=== PATIENT | male | born 1940 | race Caucasian/White ===

== ENCOUNTER → 2016-12-24 | Outpatient (CLI) | payer OTHER ==
[~2016-12-24] MED LIST: ASPI81CH45 OR; ATO40T OR
[2016-12-24 09:12] LABS: Basophils # (auto) 0 uL; Basophils % (auto) 0.4 % (0.0-2.0); DEFINITIVE VIEW TRANSMISSION; Eosinophils # (auto) 0.1 uL; Eosinophils % (auto) 1.7 % (0.0-7.0); Hematocrit 37.9 % (41.0-53.0); Hemoglobin 11.9 g/dL (13.5-17.5); Lymphocytes # (auto) 1.4 uL; Lymphocytes % (auto) 19.4 % (10.0-50.0); Mean Corpuscular Hemoglobin 25.4 pg (28.0-32.0); Mean Corpuscular Hgb Conc. 31.3 g/dL (32.0-36.0); Mean Corpuscular Volume 81.1 fL (80.0-100.0); Mean Platelet Volume 9.1 fL (7.4-10.4); Monocytes # (auto) 0.7 uL; Monocytes % (auto) 9.2 % (0.0-12.0); Neutrophils # (auto) 5.1 uL; Neutrophils % (auto) 69.3 % (37.0-80.0); Platelet Count (auto) 396 10^3/uL (140-450); Red Cell Distribution Width 19.4 % (11.6-16.0); White Blood Cell 7.4 10^3/uL (4.4-10.8)
[2016-12-24 12:23] LABS: Anisocytosis Slight; Hypochromia Slight; Platelet Estimate Adequate
[2016-12-24 13:57] LABS: Potassium 3.7 mmol/L (3.5-5.1)
[2016-12-24 14:26] LABS: Albumin 2.7 g/dL (3.4-5.0); BUN/Creatinine Ratio 15.1; Calcium 9.7 mg/dL (8.5-10.1)
[2016-12-24 14:42] LABS: Bilirubin, Total 13.2 mg/dL (0.2-1.0); Total Protein 8.7 g/dL (6.4-8.2)
== END | disposition home or self-care (01) ==
LOC: LAB 08:03
PROVIDERS: ATTEND Internal Medicine
DX: C34.11 Malignant neoplasm of upper lobe, right bronchus or lung (principal)
CPT/HCPCS: 36415; 80053; 83615; 85025

== ENCOUNTER → 2017-01-09 | Outpatient (CLI) | payer OTHER ==
[2017-01-09 09:32] LABS: Basophils # (auto) 0 uL; Basophils % (auto) 0.4 % (0.0-2.0); DEFINITIVE VIEW TRANSMISSION; Eosinophils # (auto) 0 uL; Eosinophils % (auto) 0.7 % (0.0-7.0); Hematocrit 34.7 % (41.0-53.0); Lymphocytes # (auto) 1.7 uL; Lymphocytes % (auto) 25.3 % (10.0-50.0); Mean Corpuscular Hemoglobin 26.5 pg (28.0-32.0); Mean Corpuscular Hgb Conc. 31.7 g/dL (32.0-36.0); Mean Corpuscular Volume 83.7 fL (80.0-100.0); Monocytes # (auto) 0.7 uL; Monocytes % (auto) 10.6 % (0.0-12.0); Neutrophils # (auto) 4.3 uL; Platelet Count (auto) 363 10^3/uL (140-450); White Blood Cell 6.9 10^3/uL (4.4-10.8)
[2017-01-09 09:41] LABS: Albumin 2.4 g/dL (3.4-5.0); BUN/Creatinine Ratio 21.3; Bilirubin, Total 4.5 mg/dL (0.2-1.0); Calcium 9.1 mg/dL (8.5-10.1); Potassium 3.9 mmol/L (3.5-5.1); Total Protein 8.2 g/dL (6.4-8.2)
[2017-01-09 09:58] LABS: Red Cell Distribution Width 21.5 % (11.6-16.0)
[2017-01-09 09:59] LABS: Anisocytosis Slight; Hypochromia Slight; Platelet Estimate Adequate
== END | disposition home or self-care (01) ==
LOC: LAB 08:08
PROVIDERS: ATTEND Internal Medicine
DX: C34.11 Malignant neoplasm of upper lobe, right bronchus or lung (principal)
CPT/HCPCS: 36415; 80053; 85025

== ENCOUNTER 2017-01-10 21:31 | Inpatient (IN) | payer OTHER ==
[~2017-01-10] VITALS: Ht 182.9 cm; Wt 74.3 kg
[2017-01-10 22:11] LABS: Basophils # (auto) 0 uL; Basophils % (auto) 0.2 % (0.0-2.0); DEFINITIVE VIEW TRANSMISSION; Eosinophils # (auto) 0 uL; Eosinophils % (auto) 0.1 % (0.0-7.0); Hematocrit 36.1 % (41.0-53.0); Hemoglobin 11.5 g/dL (13.5-17.5); Lymphocytes # (auto) 2.1 uL; Lymphocytes % (auto) 14.4 % (10.0-50.0); Mean Corpuscular Hemoglobin 26.8 pg (28.0-32.0); Mean Corpuscular Hgb Conc. 31.8 g/dL (32.0-36.0); Mean Corpuscular Volume 84.3 fL (80.0-100.0); Mean Platelet Volume 8.6 fL (7.4-10.4); Neutrophils # (auto) 11.4 uL; Neutrophils % (auto) 78.3 % (37.0-80.0); Platelet Count (auto) 330 10^3/uL (140-450); White Blood Cell 14.6 10^3/uL (4.4-10.8)
[2017-01-10 22:15] LABS: Red Cell Distribution Width 21.8 % (11.6-16.0)
[2017-01-10] MEDS ORDERED: ONDANSETRON HCL 4 MG/2 ML VIAL IV ONE (22:15)
[2017-01-10] MEDS ORDERED: MORPHINE SULF INJ 2 MG/ML SYRINGE 1ML IV ONE ×2 (22:15→23:15)
[2017-01-10 22:23] LABS: Anisocytosis Slight; Hypochromia Slight; INR 1.11 (0.9-1.15); Partial Thromboplastin Time 35.2 sec (22.64-33.71); Platelet Estimate Adequate; Prothrombin Time 11.4 sec (9.37-12.3)
[2017-01-10 22:41] LABS: Albumin 2.7 g/dL (3.4-5.0); Alkaline Phosphatase 355 U/L (45-117); Amylase 83 U/L (25-115); Anion Gap 13 (5-15); Aspartate Aminotransferase 234 U/L (15-37); BUN/Creatinine Ratio 20.5; Bilirubin, Total 4.3 mg/dL (0.2-1.0); Blood Urea Nitrogen 18 mg/dL (7-18); Calcium 9.3 mg/dL (8.5-10.1); Carbon Dioxide 22 mmol/L (21-32); Chloride 100 mmol/L (98-107); GFR African American 109 mL/min; GFR Non-African American 90 mL/min; Glucose 210 mg/dL (74-106); Magnesium 2.1 mg/dL (1.6-2.6); Potassium 3.2 mmol/L (3.5-5.1); Sodium 135 mmol/L (136-145); Total Protein 8.6 g/dL (6.4-8.2)
[2017-01-10] MEDS ORDERED: SODIUM CHLORIDE 0.9% 500 ML IV ONE (23:15)
[2017-01-10] MEDS ORDERED: POTASSIUM CHL 20 Meq TABLET PO ONE (23:30)
[2017-01-10 23:58] LABS: Urine Blood Negative /uL (Negative); Urine Ca Oxalate Crystal MOD (None Seen); Urine Color Brown (Yellow); Urine Glucose TRACE mg/dL (Normal); Urine Hyaline Cast FEW /lpf (0 - 2); Urine Ketone Negative (Negative); Urine Mucus FEW (None Seen); Urine Nitrite Negative (Negative); Urine RBC 3 /hpf (0 - 3); Urine Squamous Epithelial Cell FEW /hpf (<5)
[2017-01-11] VITALS (8 sets, daily range): BP systolic 104–126; BP diastolic 49–62
[2017-01-11 00:01] LABS: Urine Bilirubin 1+ (Negative)
[2017-01-11 00:18] LABS: B-Type Natriuretic Peptide 44.26 pg/mL (0-100)
[2017-01-11 00:32] LABS: Temperature: 21.9 C (20.0-25.0)
[2017-01-11] MEDS ORDERED: HYDROmorphone HCL 2 MG/ML VL IV ONE (02:30)
[2017-01-11] MEDS ORDERED: cefTRIAXone 1GM/50ML D5W 50 ML IV ONE (02:30)
[2017-01-11] MEDS ORDERED: MORPHINE SULF INJ 2 MG/ML SYRINGE 1ML IV PRN (04:15)
[2017-01-11] MEDS ORDERED: ONDANSETRON HCL 4 MG/2 ML VIAL IV PRN (04:15)
[2017-01-11] MEDS ORDERED: ACETAMINOPHEN 325 MG TAB PO PRN (04:15)
[2017-01-11] MEDS: SODIUM CHLORIDE 0.9% 1,000 ML IV SCH ×2 (04:47→20:44)
[2017-01-11] MEDS ORDERED: ENOX80IN8 SC (07:40)
[2017-01-11] MEDS: HYDROcodone-ACET 5/325MG TAB PO PRN ×3 (08:26→17:44)
[2017-01-12] MEDS: HYDROcodone-ACET 5/325MG TAB PO PRN ×2 (03:59→09:05)
[2017-01-12 04:50] VITALS: BP 107/60
[2017-01-12 06:21] LABS: Basophils # (auto) 0 uL; Basophils % (auto) 0.2 % (0.0-2.0); DEFINITIVE VIEW TRANSMISSION; Eosinophils # (auto) 0 uL; Eosinophils % (auto) 0.4 % (0.0-7.0); Hemoglobin 10.2 g/dL (13.5-17.5); Lymphocytes # (auto) 1.3 uL; Lymphocytes % (auto) 15.1 % (10.0-50.0); Mean Corpuscular Hemoglobin 27.7 pg (28.0-32.0); Mean Corpuscular Hgb Conc. 33.9 g/dL (32.0-36.0); Mean Corpuscular Volume 81.9 fL (80.0-100.0); Monocytes # (auto) 0.8 uL; Monocytes % (auto) 9.6 % (0.0-12.0); Neutrophils # (auto) 6.5 uL; Neutrophils % (auto) 74.7 % (37.0-80.0); Platelet Count (auto) 216 10^3/uL (140-450); White Blood Cell 8.7 10^3/uL (4.4-10.8)
[2017-01-12 06:27] LABS: Red Cell Distribution Width 21.5 % (11.6-16.0)
[2017-01-12 06:46] LABS: Albumin 2.2 g/dL (3.4-5.0); BUN/Creatinine Ratio 11.3; Calcium 8.9 mg/dL (8.5-10.1); Potassium 4.1 mmol/L (3.5-5.1)
[2017-01-12 06:49] LABS: Bilirubin, Total 3.3 mg/dL (0.2-1.0); Total Protein 7.4 g/dL (6.4-8.2)
[2017-01-12 09:09] VITALS: BP 106/46
[2017-01-12 13:00] VITALS: BP 106/46
[2017-01-12 13:10] VITALS: BP 117/60
[2017-01-12 15:14] LABS: Anisocytosis Slight; Platelet Estimate Adequate
[2017-01-12 15:15] LABS: Stomatocytes Moderate
== END 2017-01-12 13:00 | disposition home or self-care (01) | DRG 391 ==
LOC: ER 21:32 → OVERFLOW 21:33 → CENTRAL 01-11 05:40
PROVIDERS: ADMIT Emergency Medicine; ATTEND Emergency Medicine
DX: R10.9 Unspecified abdominal pain (principal); K83.1 Obstruction of bile duct; I26.99 Other pulmonary embolism without acute cor pulmonale; C34.90 Malignant neoplasm of unspecified part of unspecified bronchus or lung; R79.89 Other specified abnormal findings of blood chemistry; J44.9 Chronic obstructive pulmonary disease, unspecified; K86.9 Disease of pancreas, unspecified; Z96.89 Presence of other specified functional implants; Z79.899 Other long term (current) drug therapy; Z79.82 Long term (current) use of aspirin
CPT/HCPCS: 36415; 71020; 71250; 74176; 80053; 81001; 82150; 83036; 83690; 83735; 83880; 84484; 85025; 85610; 85730; 87081; 96361; 96365; 96375; 96376; J0696; J2405

== ENCOUNTER → 2017-02-11 | Outpatient (CLI) | payer OTHER ==
[~2017-02-11] MED LIST changes: -ASPI81CH45 OR; -ATO40T OR; +ENOX80IN8 SC
[2017-02-11 08:31] LABS: Basophils # (auto) 0 uL; Basophils % (auto) 0.7 % (0.0-2.0); Eosinophils # (auto) 0 uL; Eosinophils % (auto) 0.4 % (0.0-7.0); Hematocrit 34.6 % (41.0-53.0); Hemoglobin 11.7 g/dL (13.5-17.5); Lymphocytes # (auto) 1.1 uL; Lymphocytes % (auto) 46.8 % (10.0-50.0); Mean Corpuscular Hemoglobin 27.8 pg (28.0-32.0); Mean Corpuscular Hgb Conc. 33.8 g/dL (32.0-36.0); Mean Platelet Volume 7.5 fL (7.4-10.4); Monocytes # (auto) 0.1 uL; Monocytes % (auto) 6.1 % (0.0-12.0); Platelet Count (auto) 186 10^3/uL (140-450); Red Cell Distribution Width 16.5 % (11.6-16.0); White Blood Cell 2.3 10^3/uL (4.4-10.8)
[2017-02-11 08:48] LABS: Albumin 2.8 g/dL (3.4-5.0); BUN/Creatinine Ratio 30.2; Calcium 8.8 mg/dL (8.5-10.1)
[2017-02-11 08:51] LABS: Bilirubin, Total 0.8 mg/dL (0.2-1.0)
== END | disposition home or self-care (01) ==
LOC: LAB 08:06
PROVIDERS: ATTEND Internal Medicine
DX: C34.11 Malignant neoplasm of upper lobe, right bronchus or lung (principal)
CPT/HCPCS: 36415; 80053; 83615; 85025

== ENCOUNTER → 2017-02-18 | Outpatient (CLI) | payer OTHER ==
[2017-02-18 10:14] LABS: DEFINITIVE VIEW TRANSMISSION; Hemoglobin 12.4 g/dL (13.5-17.5); Mean Corpuscular Hemoglobin 28.5 pg (28.0-32.0); Mean Corpuscular Hgb Conc. 34.5 g/dL (32.0-36.0); Mean Corpuscular Volume 82.8 fL (80.0-100.0); Mean Platelet Volume 7.8 fL (7.4-10.4); Platelet Count (auto) 271 10^3/uL (140-450); Red Cell Distribution Width 16.1 % (11.6-16.0); SUSPECT VIEW TRANSMISSION; White Blood Cell 2.2 10^3/uL (4.4-10.8)
[2017-02-18 10:21] LABS: Metamyelocytes % 0; Myelocytes % 0; Promyelocytes % 0; Reactive Lymphocytes 0
[2017-02-18 10:28] LABS: Bilirubin, Total 0.7 mg/dL (0.2-1.0); Calcium 10.5 mg/dL (8.5-10.1); Potassium 3.7 mmol/L (3.5-5.1); Total Protein 8.7 g/dL (6.4-8.2)
[2017-02-18 15:27] LABS: Platelet Estimate Adequate
== END | disposition home or self-care (01) ==
LOC: LAB 08:13
PROVIDERS: ATTEND Internal Medicine
DX: C34.11 Malignant neoplasm of upper lobe, right bronchus or lung (principal)
CPT/HCPCS: 36415; 80053; 83615; 85007; 85027; 86301

== ENCOUNTER → 2017-02-24 | Outpatient (CLI) | payer OTHER ==
[2017-02-24 13:43] LABS: Basophils # (auto) 0 uL; Basophils % (auto) 0.3 % (0.0-2.0); Eosinophils # (auto) 0 uL; Eosinophils % (auto) 0.5 % (0.0-7.0); Hematocrit 33.9 % (41.0-53.0); Hemoglobin 11.3 g/dL (13.5-17.5); Lymphocytes # (auto) 0.8 uL; Lymphocytes % (auto) 12.6 % (10.0-50.0); Mean Corpuscular Hemoglobin 27.9 pg (28.0-32.0); Mean Corpuscular Hgb Conc. 33.5 g/dL (32.0-36.0); Mean Corpuscular Volume 83.5 fL (80.0-100.0); Mean Platelet Volume 7.4 fL (7.4-10.4); Monocytes # (auto) 0.8 uL; Monocytes % (auto) 11.5 % (0.0-12.0); Neutrophils % (auto) 75.1 % (37.0-80.0); Platelet Count (auto) 351 10^3/uL (140-450); Red Cell Distribution Width 16.3 % (11.6-16.0); White Blood Cell 6.6 10^3/uL (4.4-10.8)
== END | disposition home or self-care (01) ==
LOC: LAB 13:10
PROVIDERS: ATTEND Internal Medicine
DX: C34.11 Malignant neoplasm of upper lobe, right bronchus or lung (principal)
CPT/HCPCS: 36415; 85025

== ENCOUNTER → 2017-03-02 | Outpatient (CLI) | payer OTHER ==
[2017-03-02 09:22] LABS: Basophils # (auto) 0 uL; Basophils % (auto) 0.4 % (0.0-2.0); Eosinophils # (auto) 0 uL; Eosinophils % (auto) 0.6 % (0.0-7.0); Hematocrit 38.2 % (41.0-53.0); Hemoglobin 12.7 g/dL (13.5-17.5); Lymphocytes # (auto) 0.7 uL; Lymphocytes % (auto) 10.6 % (10.0-50.0); Mean Corpuscular Hgb Conc. 33.2 g/dL (32.0-36.0); Mean Corpuscular Volume 84.2 fL (80.0-100.0); Mean Platelet Volume 8.4 fL (7.4-10.4); Monocytes # (auto) 0.8 uL; Monocytes % (auto) 11.6 % (0.0-12.0); Neutrophils # (auto) 5.2 uL; Neutrophils % (auto) 76.8 % (37.0-80.0); Platelet Count (auto) 314 10^3/uL (140-450); Red Cell Distribution Width 15.8 % (11.6-16.0); White Blood Cell 6.7 10^3/uL (4.4-10.8)
[2017-03-02 09:38] LABS: Albumin 3.1 g/dL (3.4-5.0); BUN/Creatinine Ratio 27.5; Bilirubin, Total 0.5 mg/dL (0.2-1.0); Calcium 9.5 mg/dL (8.5-10.1); Magnesium 2.2 mg/dL (1.6-2.6); Potassium 3.8 mmol/L (3.5-5.1); Total Protein 8.5 g/dL (6.4-8.2)
== END | disposition home or self-care (01) ==
LOC: LAB 08:55
PROVIDERS: ATTEND Internal Medicine
DX: C25.9 Malignant neoplasm of pancreas, unspecified (principal)
CPT/HCPCS: 36415; 80053; 83615; 83735; 85025

== ENCOUNTER → 2017-03-11 | Outpatient (CLI) | payer OTHER ==
[2017-03-11 08:34] LABS: Basophils # (auto) 0 uL; Basophils % (auto) 0.2 % (0.0-2.0); Eosinophils # (auto) 0 uL; Eosinophils % (auto) 0.2 % (0.0-7.0); Hematocrit 36.6 % (41.0-53.0); Hemoglobin 12.3 g/dL (13.5-17.5); Lymphocytes # (auto) 0.4 uL; Lymphocytes % (auto) 12.3 % (10.0-50.0); Mean Corpuscular Hemoglobin 27.9 pg (28.0-32.0); Mean Corpuscular Hgb Conc. 33.5 g/dL (32.0-36.0); Mean Corpuscular Volume 83.5 fL (80.0-100.0); Mean Platelet Volume 7.3 fL (7.4-10.4); Monocytes # (auto) 0.1 uL; Neutrophils # (auto) 2.4 uL; Neutrophils % (auto) 82.3 % (37.0-80.0); Platelet Count (auto) 191 10^3/uL (140-450); White Blood Cell 2.9 10^3/uL (4.4-10.8)
[2017-03-11 09:03] LABS: BUN/Creatinine Ratio 32.3; Bilirubin, Total 0.5 mg/dL (0.2-1.0); Calcium 9.2 mg/dL (8.5-10.1); Potassium 3.7 mmol/L (3.5-5.1)
== END | disposition home or self-care (01) ==
LOC: LAB 08:13
PROVIDERS: ATTEND Internal Medicine
DX: C34.11 Malignant neoplasm of upper lobe, right bronchus or lung (principal)
CPT/HCPCS: 36415; 80053; 83615; 85025

== ENCOUNTER → 2017-03-18 | Outpatient (CLI) | payer OTHER ==
[2017-03-18 08:47] LABS: DEFINITIVE VIEW TRANSMISSION; Hematocrit 36.3 % (41.0-53.0); Mean Corpuscular Hemoglobin 28.4 pg (28.0-32.0); Mean Corpuscular Hgb Conc. 32.9 g/dL (32.0-36.0); Mean Corpuscular Volume 86.1 fL (80.0-100.0); Mean Platelet Volume 7.3 fL (7.4-10.4); Platelet Count (auto) 245 10^3/uL (140-450); Red Cell Distribution Width 15.6 % (11.6-16.0); SUSPECT VIEW TRANSMISSION
[2017-03-18 08:54] LABS: Metamyelocytes % 0; Myelocytes % 0; Promyelocytes % 0; Reactive Lymphocytes 0
[2017-03-18 08:56] LABS: White Blood Cell 1.8 10^3/uL (4.4-10.8)
[2017-03-18 15:09] LABS: Platelet Estimate Adequate
== END | disposition home or self-care (01) ==
LOC: LAB 08:14
PROVIDERS: ATTEND Internal Medicine
DX: C34.10 Malignant neoplasm of upper lobe, unspecified bronchus or lung (principal); C25.9 Malignant neoplasm of pancreas, unspecified
CPT/HCPCS: 36415; 85007; 85027

== ENCOUNTER → 2017-03-30 | Outpatient (CLI) | payer OTHER | END | disposition home or self-care (01) | LOC: LAB 07:38 | PROVIDERS: ATTEND Internal Medicine | DX: Z01.812 Encounter for preprocedural laboratory examination (principal) | CPT/HCPCS: 36415; 82565; 84520 ==